=== PATIENT | female | born 1965 | race Caucasian/White ===

== ENCOUNTER → 2020-09-24 08:05 | Outpatient (BNVA) | payer MEDICARE, SELFPAY | PROVIDERS: PCP Internal Medicine; Visit Provider Anesthesiology | DX: M96.1 Postlaminectomy syndrome, not elsewhere classified (principal); G89.4 Chronic pain syndrome; G90.521 Complex regional pain syndrome I of right lower limb; M25.511 Pain in right shoulder; Z79.891 Long term (current) use of opiate analgesic | CPT/HCPCS: 99202 ==

== ENCOUNTER → 2020-10-06 13:30 | Outpatient (BNVA) | payer MEDICARE, SELFPAY | PROVIDERS: PCP Internal Medicine; Visit Provider Family Medicine Adult Medicine | DX: M96.1 Postlaminectomy syndrome, not elsewhere classified (principal); G90.521 Complex regional pain syndrome I of right lower limb; M25.511 Pain in right shoulder; G89.29 Other chronic pain; G89.4 Chronic pain syndrome; Z79.891 Long term (current) use of opiate analgesic | CPT/HCPCS: Q3014 ==

== ENCOUNTER → 2020-10-07 10:06 | Outpatient (BNVA) | payer MEDICARE, SELFPAY | PROVIDERS: PCP Internal Medicine; Visit Provider Anesthesiology | DX: M96.1 Postlaminectomy syndrome, not elsewhere classified (principal); M25.511 Pain in right shoulder; G90.521 Complex regional pain syndrome I of right lower limb; G89.4 Chronic pain syndrome; Z79.891 Long term (current) use of opiate analgesic | CPT/HCPCS: 99212 ==

== ENCOUNTER → 2020-10-20 08:38 | Outpatient (BNVA) | payer MEDICARE, SELFPAY | PROVIDERS: PCP Internal Medicine; Visit Provider Family Medicine Adult Medicine | DX: M96.1 Postlaminectomy syndrome, not elsewhere classified (principal); G90.521 Complex regional pain syndrome I of right lower limb | CPT/HCPCS: 99212 ==

== ENCOUNTER → 2020-11-19 08:45 | Outpatient (BNVA) | payer MEDICARE, SELFPAY | PROVIDERS: PCP Internal Medicine; Visit Provider Family Medicine Adult Medicine | DX: G89.4 Chronic pain syndrome (principal); M96.1 Postlaminectomy syndrome, not elsewhere classified; G90.521 Complex regional pain syndrome I of right lower limb | CPT/HCPCS: Q3014 ==

== ENCOUNTER → 2020-12-31 08:05 | Outpatient (BNVA) | payer MEDICARE, SELFPAY | PROVIDERS: PCP Internal Medicine; Visit Provider Family Medicine Adult Medicine | DX: M96.1 Postlaminectomy syndrome, not elsewhere classified (principal); G90.521 Complex regional pain syndrome I of right lower limb | CPT/HCPCS: 99212 ==

== ENCOUNTER 2021-02-12 08:16 | Day surgery (SDC) | payer MEDICARE, SELFPAY ==
--- NOTE | ~2021-02-12 | FL_ITS ---
EXAMINATION: XR FL WITH IMAGES CLINICAL INFORMATION: Spinal stimulation trial. COMPARISON: None TECHNIQUE: Fluoroscopy Performed by Dr. Wolfe. Fluoroscopy Time: 4.8 minutes. DAP: 27 Gycm2. Images: 5. FINDINGS: Spinal stimulator leads appear to be in place with radiopaque marker regions spanning T7 through T9. Patient is status post previous lumbosacral spine surgery which is only imaged bilaterally and with limited visualization. AP view would be of help in further evaluation of spinal levels of the screws and for their intrapedicle location. Disc space cages seen at 2 levels. No Previous studies are available for comparison. FL/FL guidance in OR IMPRESSION: 1. Spinal stimulation trial. 2. Status post previous lumbosacral spine surgery.
[2021-02-12 08:28] VITALS: BMI 27.4
[2021-02-12 09:02] VITALS: BP 186/116; PULSE 80; RESP 18; TEMP 37; O2SAT 98
--- NOTE | 2021-02-12 09:03 | P.CONAN_ITS ---
[facility] Active Problems Active Problems: All Active Problems (Updated 12/31/20 @ 09:[address] DO) longterm (current) use of opiate analgesic (Acute) Chronic pain syndrome (Acute) Chronic right shoulder pain (Acute) Complex regional pain syndrome of right lower extremity (Acute) Postlaminectomy syndrome, lumbar (Acute) Past Medical History Medical History (Updated 12/31/20 @ 09:[address] DO) Chronic pain syndrome Chronic right shoulder pain Complex regional pain syndrome of right lower extremity longterm (current) use of opiate analgesic Postlaminectomy syndrome, lumbar Social History Social History (Updated 10/06/20 @ 15:[address] Sams DO) Household Members Other:: lives w. and son Alcohol intake: never Patient Tobacco Use Status: Never used Tobacco Use of substances other than those prescribed or required for medical reasons: No Have you been hit, kicked, punched, or otherwise hurt by someone within the past year? 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, c service x 30 Meds Allergies Allergy/AdvReac Type Severity Reaction Status Date / Time acetaminophen [From Vicodin] Allergy unknown Verified 12/31/20 08:43 hydrocodone [From Vicodin] Allergy unknown Verified 12/31/20 08:43 latex Allergy unknown Verified 12/31/20 08:43 oxycodone Allergy unknown Verified 12/31/20 08:43 Home Medications Medication Instructions Recorded Confirmed Last Taken Type valsartan 160 1 tab PO DAILY 10/07/20 Unknown History mg-hydrochlorothiazide 25 mg tablet alendronate 70 mg tablet 70 mg PO QWEEK 10/20/20 Unknown History amlodipine 5 mg tablet 5 mg PO DAILY 10/20/20 Unknown History gabapentin 300 mg capsule 300 mg PO TID 10/20/20 Unknown History potassium citrate 15 mEq (1,620 15 meq PO DAILY 10/20/20 Unknown History mg) tablet,extended release Exam Exam Date and Time: February 12, [id number] Height,Weight and Vital Signs: Height 5 ft 3 in Weight 70.307 kg Airway Mallampati Class: II TM Dist: >3cm Neck ROM: Full
--- NOTE | 2021-02-12 09:23 | PC.NURSE ---
VENDOR AT BEDSIDE EXPLAINING PROCEDURE TO PATIENT.
[2021-02-12] MEDS: Lactated Ringers 1,000 ML 100 ML IVCONT (09:36)
--- NOTE | 2021-02-12 09:52 | PC.NURSE ---
DR. ISIDRO AWARE OF PATIENT'S BP, WELL THE ANESTHESIOLOGIST.
--- NOTE | 2021-02-12 09:53 | P.HPSUR_ITS ---
Pre-Procedural Eval Section A Date of Service: 02/12/21 Changes since office visit: Yes Patient answered all questions The History & Physical has been completed within 30 days and I have reviewed it.: No Section B Chief Complaint: Postlaminectomy syndrome, Complex regional pain Details of Present Illness: as above Relevant Family History (Specify if Yes): No Relevant Social History: None Present Medications: None Medical History: No relevant PMH History of Previous Operations: Relevant previous surgery/procedure and date(s) Allergies: Allergies Allergy/AdvReac Type Severity Reaction Status Date / Time acetaminophen [From Vicodin] Allergy unknown Verified 02/12/21 09:13 hydrocodone [From Vicodin] Allergy unknown Verified 02/12/21 09:13 latex Allergy unknown Verified 02/12/21 09:13 oxycodone Allergy unknown Verified 02/12/21 09:13 Review of Systems Sugical H&P ROS: Negative: Constitution, Cardiovascular, Respiratory, N eurological, Psychiatric, Hem-Onc, Allergic/Immunologic, Gastrointestinal, Genitourinary, Musculoskeletal, Integumentary, Endocrine and Eyes/Ears/Nose/Throat Exam Surgical H&P Exam: Normal: HEENT, Normal: Heart, Normal: Lungs, Normal: Extremities, Normal: Abdomen, Normal: Skin and Normal: Neurological Exam Comment: BP is elevated to 119 diastolic presumably due to anxiety. Plan Diagnosis/Plan: Unchanged (Attending anesthesiologist will be taking care of the BP.) I have reviewed the history and physical and performed a pertinent physical examination on my patient. No changes have occurred unless specified.
--- NOTE | 2021-02-12 10:03 | PC.NURSE ---
BP RERUN BY 164/99.
[2021-02-12 11:20] VITALS: BP 141/97; PULSE 64; RESP 11; TEMP 36.3; O2SAT 100
--- NOTE | 2021-02-12 11:22 | P.BOP_ITS ---
Brief Operative Note Date of Service: 02/12/21 Pre-op diagnosis: CRPS RLE, Postlaminectomy syndrome lumbar. Post-op diagnosis: same Procedure: trial of SCS [place] SCi. Implants: none permanent Surgeon: Matt Wolfe MD Anesthesia: MAC Was an Melt House Drag Operator used for this Procedure?: No Estimated blood loss (mL): 6 Pathology: none sent Condition: stable Disposition: PACU
[2021-02-12 11:35] VITALS: BP 148/96; PULSE 68; RESP 16; TEMP 36.3; O2SAT 96
--- NOTE | 2021-02-12 20:27 | W.PM.OPN ---
Operative Note Operative Note Date of Service: 02/12/21 Narrative: Trial OF SCS. Ms. Avendano is very pleasant 55 years old lady who came today into the operating room for trial of spinal cord stimulator for the treatment of post laminectomy syndrome and right lower extremity CRPS. Preoperatively patient received 2g Cefazolin approximately 20 minutes before the procedure. After obtaining informed consent patient was brought to the operating room, SHE was positioned prone on operating table, [place] [employer] monitors were applied and patient was deeply sedated. Time-out was performed delineating correct site, side, the nature of the procedure, patient's allergy, preoperative antibiotic if needed. All operating room staff was participating in OR time-out procedure. Patient's entire back was prepped with ChloraPrep twice and draped with full body fenestrated drape. Sterilely draped C-arm was brought over operating field and sqare picture of T11-T12 L1 L2 vertebrae as were demonstrated on the screen. Attention FIRST was concentrated on the L1- L2 epidural interspace. The location of the projection of the right pedicle center of the L3 vertebra was found on the skin using C-arm. This location was injected with mixture of lidocaine 2% and Marcaine 0.5% 5 cc. After that 11 blade was used to make a anuj on the skin. Ten cm 14 gauge straight introducer epidural needle was inserted through the anuj and advanced to L1-L2 epidural interspace. The advancement of the needle was performed on anterior posterior and lateral views. Guitar wire and loss of resistance technique were used to locate epidural space. When guitar wire was spread in the epidural fashion, epidural lead was inserted through the skin and it was advanced to T8 position slightly right to the midline. On the lateral view the lead appeared to be in the posterior epidural space. After that location of the projection of the LEFT pedicle center of the L3 vertebra was found on the skin using C-arm. This location was injected with mixture of lidocaine 2% and Marcaine 0.5% 5 cc. After that 11 blade was used to make a anuj on the skin. Ten cm 14 gauge straight introducer epidural needle was inserted through the anuj and advanced to L1- L2 epidural interspace. The advancement of the needle was performed on anterior posterior and lateral views. Guitar wire and loss of resistance technique were used to locate epidural space. When guitar wire was spread in the epidural fashion, epidural lead was inserted through the needle and advanced to the T8 level vertebra strictly at the midline. At this moment patient was awaken and the epidural leads were connected to the testing device. The patient reported stimulation corresponding to her pain. After satisfactory position of the leads were established the needles were withdrawn, the stylette wires were removed from the epidural leads. The anchoring devices were dislodged on the leads and advanced to the level of the skin. The anchoring devices were sutured with two 0-0 silk sutures to the skin of the patient. The leads were connected to testing device. Bacitracin ointment was applied to the entrance point of bilateral needles. Sterile dressing was applied to the patient's back. The testing device was also taped to the patient's back. The patient tolerated the procedure very well. She went to the PACU where she recovered uneventfully.
== END 2021-02-12 12:40 | disposition home or self-care (01) ==
PROVIDERS: PCP Internal Medicine; Visit Provider Anesthesiology
PROC: (CPT 63650; principal; 2021-02-12 10:30)
DX: M96.1 Postlaminectomy syndrome, not elsewhere classified (principal); G90.521 Complex regional pain syndrome I of right lower limb; Z79.899 Other long term (current) drug therapy; Z91.040 Latex allergy status; Z88.8 Allergy status to other drugs, medicaments and biological substances
CPT/HCPCS: 63650 ×2; C1778; J0690; J2250; J3010

== ENCOUNTER → 2021-02-17 12:57 | Outpatient (BNVA) | payer MEDICARE, SELFPAY | PROVIDERS: PCP Internal Medicine; Visit Provider Anesthesiology | DX: M96.1 Postlaminectomy syndrome, not elsewhere classified (principal); M25.511 Pain in right shoulder; G90.521 Complex regional pain syndrome I of right lower limb; G89.29 Other chronic pain; G89.4 Chronic pain syndrome; Z79.891 Long term (current) use of opiate analgesic | CPT/HCPCS: 99212 ==

== ENCOUNTER → 2021-02-23 12:50 | Outpatient (BNVA) | payer MEDICARE, SELFPAY | PROVIDERS: PCP Internal Medicine; Visit Provider Nurse Practitioner Family | DX: M96.1 Postlaminectomy syndrome, not elsewhere classified (principal); M25.511 Pain in right shoulder; G90.521 Complex regional pain syndrome I of right lower limb; G89.4 Chronic pain syndrome; G89.29 Other chronic pain; Z79.891 Long term (current) use of opiate analgesic | CPT/HCPCS: 99212 ==

== ENCOUNTER → 2021-02-25 10:00 | Outpatient (BNVA) | payer MEDICARE, SELFPAY | PROVIDERS: PCP Internal Medicine; Visit Provider Family Medicine Adult Medicine | DX: M96.1 Postlaminectomy syndrome, not elsewhere classified (principal); G89.4 Chronic pain syndrome; G90.521 Complex regional pain syndrome I of right lower limb; M25.511 Pain in right shoulder; G89.29 Other chronic pain | CPT/HCPCS: 99212 ==

== ENCOUNTER → 2021-04-23 09:22 | Outpatient (BNVA) | payer MEDICARE, SELFPAY | PROVIDERS: PCP Internal Medicine; Visit Provider Nurse Practitioner Family | DX: Z51.81 Encounter for therapeutic drug level monitoring (principal); M96.1 Postlaminectomy syndrome, not elsewhere classified; M25.511 Pain in right shoulder; G90.521 Complex regional pain syndrome I of right lower limb; G89.29 Other chronic pain; G89.4 Chronic pain syndrome; Z79.891 Long term (current) use of opiate analgesic | CPT/HCPCS: 99212 ==

== ENCOUNTER → 2021-05-18 08:35 | Outpatient (BNVA) | payer MEDICARE, SELFPAY | PROVIDERS: PCP Internal Medicine; Visit Provider Family Medicine Adult Medicine | DX: M96.1 Postlaminectomy syndrome, not elsewhere classified (principal); M25.511 Pain in right shoulder; G90.521 Complex regional pain syndrome I of right lower limb; G89.29 Other chronic pain; G89.4 Chronic pain syndrome | CPT/HCPCS: 99212 ==

== ENCOUNTER → 2021-07-22 08:02 | Outpatient (BNVA) | payer MEDICARE, SELFPAY | PROVIDERS: PCP Internal Medicine; Visit Provider Family Medicine Adult Medicine | DX: Z51.81 Encounter for therapeutic drug level monitoring (principal); M96.1 Postlaminectomy syndrome, not elsewhere classified; M25.511 Pain in right shoulder; G90.521 Complex regional pain syndrome I of right lower limb; G89.29 Other chronic pain; G89.4 Chronic pain syndrome | CPT/HCPCS: 99212 ==

== ENCOUNTER → 2021-09-16 08:17 | Outpatient (BNVA) | payer MEDICARE, SELFPAY | PROVIDERS: PCP Internal Medicine; Visit Provider Anesthesiology ==

== ENCOUNTER → 2021-10-07 09:53 | Outpatient (BNVA) | payer MEDICARE, SELFPAY | PROVIDERS: PCP Internal Medicine; Visit Provider Anesthesiology | DX: Z13.89 Encounter for screening for other disorder (principal) ==

== ENCOUNTER 2021-10-22 05:57 | Day surgery (SDC) | payer MEDICARE, SELFPAY ==
[2021-10-18 15:00] VITALS: BMI 29.2
--- NOTE | ~2021-10-22 | FL_ITS ---
EXAMINATION: XR FLUOROSCOPY WITH IMAGES CLINICAL INFORMATION: Spinal implant. COMPARISON: 02/12/2021 TECHNIQUE: Fluoroscopy performed by Dr. Matt Wolfe. Fluoroscopy time: 3.7 minutes DAP: 17.3 mGycm2 Images: 3 FINDINGS: 3 images show implantation of the presumed epidural stimulation device lower thoracic spine. FL/FL guidance in OR IMPRESSION: Fluoroscopy and spot films provided for pain management procedure performed by Dr. Matt Wolfe. Please see his full procedure note for details.
[2021-10-22 06:07] VITALS: BP 180/94; PULSE 88; RESP 18; TEMP 36.6; O2SAT 98
--- NOTE | 2021-10-22 07:08 | HO.ANESPROP2 ---
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) Chronic pain syndrome (Acute) Chronic right shoulder pain (Acute) Complex regional pain syndrome of right lower extremity (Acute) Postlaminectomy syndrome, lumbar (Acute) Past Medical History Medical History (Updated 10/18/21 @ 15:05 by Jessica Tomlinson RN) Asthma Back pain with history of spinal surgery Chronic pain syndrome Chronic right shoulder pain Complex regional pain syndrome of right lower extremity DDD (degenerative disc disease), lumbar HTN (hypertension) buttermilk drier operator (current) use of opiate analgesic Osteopenia Postlaminectomy syndrome, lumbar Family History Family history of problems with anesthesia: No Surgical History Surgical History (Updated 10/18/21 @ 14:54 by Jessica Tomlinson RN) History of back surgery Hx of section Hx of cystoscopy Hx of hysterectomy Hx of lithotripsy Hx of shoulder surgery Hx of tonsillectomy Hx of tubal ligation History of Problems with Anesthesia: No Social History Social History (Updated 10/06/20 @ 15:[address] DO) Household Members Other:: lives w. 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, c service x 30 Meds Allergies Allergy/AdvReac Type Severity Reaction Status Date / Time adhesive tape Allergy Severe rash,hives Verified 10/18/21 14:57 hydrocodone [From Vicodin] Allergy Severe n/v, rash Verified 10/18/21 14:57 latex Allergy Severe rash, hives Verified 10/18/21 14:57 oxycodone Allergy Severe n/v, rash Verified 10/18/21 14:57 Home Medications Medication Instructions Recorded Confirmed Last Taken Type alendronate 70 mg tablet 70 mg PO QWEEK 10/20/20 10/18/21 Unknown History potassium citrate 15 mEq (1,620 15 meq PO DAILY 10/20/20 10/18/21 Unknown History mg) tablet,extended release diphenhydramine HCl 25 mg capsule 50 mg PO Q6H PRN cap 07/06/21 02/28/22 Unknown History (Benadryl) citalopram 40 mg tablet 40 mg PO DAILY 04/23/21 10/18/21 10/22/21 History amlodipine 5 mg tablet 10 mg PO DAILY tab 07/22/21 10/18/21 10/22/21 History albuterol sulfate 90 mcg/actuation 2 puff PO Q6H PRN 10/18/21 10/18/21 Unknown History aerosol inhaler (ProAir HFA) carvedilol 3.125 mg tablet 1 tab PO BID 10/18/21 10/18/21 10/22/21 History valsartan 320 1 tab PO DAILY 10/18/21 10/18/21 Unknown History mg-hydrochlorothiazide 25 mg tablet Exam Exam Date and Time: October 22, 2021 0708 Height,Weight and Vital Signs: Height 5 ft 3 in Weight 74.843 kg Last Vital Signs Temp 98 F 10/22/21 06:07 Pulse 88 10/22/21 06:07 Resp 18 10/22/21 06:07 BP 180/94 H 10/22/21 06:07 Pulse Ox 98 10/22/21 06:07 Airway Mallampati Class: II TM Dist: >3cm Neck ROM: Full Denture: Upper and Lower Loose/Missing/Broken Teeth: No Heart: [id number] Lungs: cta b/l Assessment and Plan Assessment Anesthesia Assessment: Anesthesia Plan Discussed and Chart Reviewed Final Anesthetic Review Family History of Problems with Anesthesia: No History of Problems with Anesthesia: No NPO: Yes ASA Class: III Final Preanesthetic Review: No Changes in Pt Med Stat, Meds/Allgs Chart Reviewed, Consent Obtained/Reviewed and Anes Risks/Benef Reviewed Patient Risk: Intermediate Procedure Risk: Intermediate Assessment/Block/Sedation in SS: Assess/Block/Sedation-SS Anesthetic Plan Anesthetic Plan: MAC: and Agree w/ Assess. and Plan Disposition: Standard PACU
--- NOTE | 2021-10-22 07:22 | MHC.SHP ---
Pre-Procedural Eval Section A Date of Service: 10/22/21 The patient is an INPATIENT: No Changes since office visit: Yes Patient answered all questions The History & Physical has been completed within 30 days and I have reviewed it.: No Section B Chief Complaint: Post-Laminectomy syndrome, Complex regional pain Details of Present Illness: the same Relevant Family History (Specify if Yes): No Relevant Social History: None Present Medications: see Short Stay Collaborative assessment Medical History: No relevant PMH Allergies: Allergies Allergy/AdvReac Type Severity Reaction Status Date / Time adhesive tape Allergy Severe rash,hives Verified 10/18/21 14:57 hydrocodone [From Vicodin] Allergy Severe n/v, rash Verified 10/18/21 14:57 latex Allergy Severe rash, hives Verified 10/18/21 14:57 oxycodone Allergy Severe n/v, rash Verified 10/18/21 14:57 Review of Systems Sugical H&P ROS: Negative: Constitution, Cardiovascular, Respiratory, Neurological, Psychiatric, Hem-Onc, Allergic/Immunologic, Gastrointestinal, Genitourinary, Musculoskeletal, Integumentary, Endocrine and Eyes/Ears/Nose/Throat Exam Surgical H&P Exam: Normal: HEENT, Normal: Heart, Normal: Lungs, Normal: Extremities, Normal: Abdomen, Normal: Skin and Normal: Neurological Plan Diagnosis/Plan: Unchanged I have reviewed the history and physical and performed a pertinent physical examination on my patient. No changes have occurred unless specified.
[2021-10-22 10:17] VITALS: BP 129/98; PULSE 86; RESP 16; TEMP 36.9; O2SAT 93
[2021-10-22 10:22] VITALS: BP 132/94; PULSE 78; RESP 16; O2SAT 93
[2021-10-22 10:27] VITALS: BP 143/94; PULSE 79; RESP 16; O2SAT 93
--- NOTE | 2021-10-22 10:28 | PM.OP ---
Brief Operative Note Date of Service: 10/22/21 Pre-op diagnosis: postlaminectomy syndrome, CRPS RLE Post-op diagnosis: same Procedure: implantation of the SCS [employer] alpha battery and the epidural leads. Implants: as above Surgeon: Matt Wolfe MD Anesthesia: MAC Was an Fountain Brush Assembler used for this Procedure?: No Estimated blood loss (mL): 45 Pathology: none sent Condition: stable Disposition: PACU
--- NOTE | 2021-10-22 10:31 | W.PM.OPN ---
Operative Note Operative Note Date of Service: 10/22/21 Narrative: Mayra is a very pleasant 55 y.o female who came today into the operating room for implantation of spinal cord stimulator for the treatment of pain related to? postlaminectomy syndrome, CRPS RLE and chronic pain syndrome.?? she had successful trial of spinal cord stimulation. Preoperatively patient received 2 g cefazolin _approximately 30 minutes before the procedure. After obtaining informed consent patient was brought to the operating room, she was positioned prone on operating table, [place] [employer] monitors were applied and patient was deeply sedated. Time-out was performed delineating correct site, side, the nature of the procedure, patient's allergy, preoperative antibiotic.? All operating room staff was participating in OR time-out procedure. Patient's entire back was prepped with ChloraPrep twice and draped with full body drape including Ioban film.? Sterilely draped C-arm was brought over operating field and square picture of T12, L1, L2 vertebrae were demonstrated on the screen.? THE PROJECTION OF ?L3- L4 SPINAL PROCESSES TO THE SKIN WERE INFILTRATED WITH LIDOCAINE 2% MIXED WITH BUPIVACAINE 0.5%.? Five CM LONG VERTICAL INCISION using a 10 blade scalpel WAS PERFORMED IN STRICT MIDLINE VERTICAL FASHION.? THOROUGH HEMOSTASIS WAS PERFORMED using electrocautery .. ?Thorough tissue dissections was performed until prevertebral fascia was freed from overlying tissues.? Attention FIRST? was concentrated on the RIGHT? L1- L2 epidural interspace.? ? The location of the projection of the right pedicle center of the? L3 vertebra was found on the prevertebral fascia using C-arm.? This location was injected with mixture of lidocaine 2% and Marcaine 0.5% 5 cc in approximate direction of needle advancement..? After that ? 10 cm 14 gauge straight introducer epidural needle was inserted through the fascia and advanced toward? L1- L2 epidural interspace.? The advancement of the needle was performed on anterior posterior and lateral views.? Guitar wire and loss of resistance technique were used to locate epidural space.? When guitar wire was spread in the epidural fashion, epidural lead was inserted through the skin and it was? attempted to advance to the bottom of T7 epidural interspace in the posterior epidural interspace. idline. The location of the present action of the left pedicle of the L3 vertebra was found on the prevertebral fascia using C-arm. The location was injected with mixture of lidocaine 2% and Marcaine 0.5% 5 cc in approximate direction of needle advancement. After that 10 cm 14 gauge straight introducer epidural needle was inserted through the fashion advanced toward L1-L2 epidural interspace. The advancement was performed on anterior posterior and lateral view. Loss of resistance to air technique was used to locate epidural space. Guitar wire was used to confirm location of the epidural space. One epidural space was reached epidural lead was inserted into the epidural space and was advanced into the posterior epidural space at the bottom of T7 vertebra. The lead was position slightly left to the existing epidural lead. The epidural leads were verified in the position the posterior epidural space bilateral view after that they were connected to testing device. Patient was awaken and leads were tested. The patient reported stimulation corresponding to her pain. ?? After the position of the lead was admitted to be satisfactory? the stylette wire was removed from the epidural leads.? The anchoring devices were dislodged on the leads and advanced to the level of the skin.? The anchoring device was advanced along the epidural leads and dislodged and epidural leads at the level of prevertebral fascia.?? it was sutured to prevertebral fascia with 2 separate etibone sutures .? The fixating screws was fixed until 3 clicks were heard on each anchoring device.? After that the wound was irrigated with copious amount of Vancomycin containing normal saline and packed with Vancomycin soaked 4 x 4. ?After that attention was concentrated on the right upper buttock of the patient where she wanted battery to be implanted.? 6 cm long horizontal incision was performed 2 cm below the?projection to the skin of the top of the iliac crest. Subcutaneous pocket was formed not deeper than 2 cm under the skin using dull dissection and electrocautery dissection.? Brisk bleeding was encountered, Thorough hemostasis was obtained using electrocautery as well as Gelfoam tissue. It was eventually removed from the wound and not stand behind. After that the wound was irrigated with copious amount of Vancomycin contained normal saline.? Tunneling device was used to connect the 2 wounds and epidural leads were dislodged into side wound.? They were connected ? alpha battery and locked with a locking screwdriver device.? Impedance was checked and appeared to be satisfactory.? After that the anchoring sutures? Tycron were applied in the most superior medial and most superior lateral corners of the wound.? After that they were connected to the anchoring holes on the body of the battery, the epidural leads were gathered? behind the body of the-battery, the battery and the leads were inserted into the pocket wound and after that the anchoring 2 sutures were tied.? The wounds were irrigated again with Vancomycin containing normal saline, thorough hemostasis was checked, and after that the wounds were closed using 0? Polysorb suture.? After that the skin edges wore approximated using 2 0 ? Polysorb suture, hayley were applied to the wounds at the level of the skin.? Bacitracin ointment was applies to the level of the hayley and sterile dressings were applied to the staple lines.? Medipore Tape was applied to hold the dressing to the patient's skin.? Abdominal binder to wear was provided to the patient.? At this moment patient was awaken and transferred to the bed.?? she was recovering uneventfully in PACU. ? After that attention was concentrated again on the left epidural interspace were insertion of the epidural needle was attempted to be performed at? T12-L1 epidural interspace.? The epidural space was reached in the same technique as described above, after that epidural electrodes lead was inserted into the epidural needle and again difficulty advancement of the epidural lead beyond the level of the needle insertions were encountered.? On top of everything slightly blood tinged CSF started to appear in the hub of the needle.? At this moment the decision was made to limit the procedure with 1 epidural electrode a raise due to very severe epidural adhesions and difficulty of epidural leads advancement.? The epidural lead which was positioned in the epidural space from the left side was connected to testing device, the patient was awaken and stimulation was applied.? Patient reported good stimulation in the lower back with spread? Of the stimulation to the right. no gutter stimulation was detected.? Position of the electrode was verified on anterior posterior views and on the lateral view the position of the electrode on the lateral view was in the posterior epidural space. ?? After the position of the lead was admitted to be satisfactory? the stylette wire was removed from the epidural leads.? The anchoring devices were dislodged on the leads and advanced to the level of the skin.? The anchoring device was advanced along the epidural leads and dislodged and epidural leads at the level of prevertebral fascia.?? it was sutured to prevertebral fascia with 2 separate etibone sutures .? The fixating screws was fixed until 3 clicks were heard on each anchoring device.? After that the wound was irrigated with copious amount of Vancomycin containing normal saline and packed with Vancomycin soaked 4 x 4. ?After that attention was concentrated on the left upper buttock of the patient where he wanted battery to be implanted.? 6 cm long horizontal incision was performed 3 cm below the? top of the iliac crest. Subcutaneous pocket was formed not deeper than 2 cm under the skin using dull dissection and electrocautery dissection.? Thorough hemostasis was obtained.? The wound was irrigated with copious amount of Vancomycin contained normal saline.? Tunneling device was used to connect the 2 wounds and epidural leads were dislodged into side wound.? They were connected ? alpha battery and locked with a locking screwdriver device.? Impedance was checked and appeared to be satisfactory.? After that the anchoring sutures? Tycron were applied in the most superior medial and most superior lateral corners of the wound.? After that they were connected to the anchoring holes on the body of the battery, the epidural leads were gathered? behind the body of the-battery, the battery and the leads were inserted into the pocket wound and after that the anchoring 2 sutures were tied.? The wounds were irrigated again with Vancomycin containing normal saline, thorough hemostasis was checked, and after that the wounds were closed using 0? Polysorb suture.? After that the skin edges wore approximated using 2 0 ? Polysorb suture, hayley were applied to the wounds at the level of the skin.? Bacitracin ointment was applies to the level of the hayley and sterile dressings were applied to the staple lines.? Medipore Tape was applied to hold the dressing to the patient's skin.? Abdominal binder to wear was provided to the patient.? At this moment patient was awaken and transferred to the bed.?? she was recovering uneventfully in PACU. ?
[2021-10-22 10:32] VITALS: BP 131/89; PULSE 77; RESP 16; O2SAT 93
[2021-10-22 10:47] VITALS: BP 150/98; PULSE 72; RESP 17; TEMP 36.6; O2SAT 95
== END 2021-10-22 11:50 | disposition home or self-care (01) ==
PROVIDERS: PCP Internal Medicine; Visit Provider Anesthesiology
PROC: (CPT 63685; principal; 2021-10-22 07:30)
DX: M96.1 Postlaminectomy syndrome, not elsewhere classified (principal); M54.50 Low back pain, unspecified; G89.4 Chronic pain syndrome; G90.521 Complex regional pain syndrome I of right lower limb; M25.511 Pain in right shoulder; M51.36 Other intervertebral disc degeneration, lumbar region; I10 Essential (primary) hypertension; J45.909 Unspecified asthma, uncomplicated; Z79.891 Long term (current) use of opiate analgesic; Z79.899 Other long term (current) drug therapy; Z87.81 Personal history of (healed) traumatic fracture; Z98.890 Other specified postprocedural states; Z88.8 Allergy status to other drugs, medicaments and biological substances; Z91.040 Latex allergy status
CPT/HCPCS: 63685; 63650 ×2; C1713; C1778; C1787; C1820; J0690; J2250; J2405; J3010; J3370

== ENCOUNTER → 2021-10-28 09:59 | Outpatient (BNVA) | payer MEDICARE, SELFPAY | PROVIDERS: PCP Internal Medicine; Visit Provider Anesthesiology | DX: M96.1 Postlaminectomy syndrome, not elsewhere classified (principal); G90.521 Complex regional pain syndrome I of right lower limb; G89.29 Other chronic pain; M25.511 Pain in right shoulder; G89.4 Chronic pain syndrome; Z98.890 Other specified postprocedural states | CPT/HCPCS: 99212 ==

== ENCOUNTER → 2021-11-04 09:43 | Outpatient (BNVA) | payer MEDICARE, SELFPAY | PROVIDERS: PCP Internal Medicine; Visit Provider Anesthesiology | DX: M96.1 Postlaminectomy syndrome, not elsewhere classified (principal); M25.511 Pain in right shoulder; G90.521 Complex regional pain syndrome I of right lower limb; G89.4 Chronic pain syndrome | CPT/HCPCS: 99212 ==

== ENCOUNTER 2023-06-19 13:53 | Outpatient (AMB) | payer MEDICARE, SELFPAY ==
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
[2023-06-19 14:15] VITALS: BP 138/78; PULSE 72; RESP 16; O2SAT 99; BMI 28.1
== END 2023-06-19 14:50 | disposition home or self-care (01) ==
PROVIDERS: PCP Internal Medicine; Visit Provider Anesthesiology
DX: G89.29 Other chronic pain (principal); M96.1 Postlaminectomy syndrome, not elsewhere classified; M25.511 Pain in right shoulder
CPT/HCPCS: 99213

== ENCOUNTER → 2023-06-19 13:53 | Outpatient (BNVA) | payer MEDICARE, SELFPAY | PROVIDERS: PCP Internal Medicine; Visit Provider Anesthesiology | DX: G90.521 Complex regional pain syndrome I of right lower limb (principal); M96.1 Postlaminectomy syndrome, not elsewhere classified; M25.511 Pain in right shoulder; G89.29 Other chronic pain; Z97.8 Presence of other specified devices | CPT/HCPCS: 99212 ==